=== PATIENT | male | born 1960 | race Caucasian/White ===

== ENCOUNTER 2016-12-03 10:26 | Emergency (ER) | payer OTHER ==
[~2016-12-03 10:26] MED LIST: LEVAQUIN750 MG PO; METFORMIN HCL500 MG PO; PROBIOTIC1 EAC1 PO
[2016-12-03 11:43] LABS: BASOPHIL 0.3 % (0-2); EOSINOPHIL 2.2 % (0-5); HCT 47.5 % (42.0-52.0); HGB 16.9 g/dl (13.2-18.0); LYMPHOCYTE 18.8 % (15-48); MCH 30.9 pg (25.0-31.0); MCHC 35.6 g/dL (32.0-36.0); MCV 86.8 fL (78.0-100.0); MPV 9.4 fL (6.0-9.5); NEUTROPHIL 67.7 % (41-80); PLT 240 K/uL (150-400); RBC 5.47 M/uL (4.70-6.00); RDW 14.9 % (11.5-14.0); WBC 6.5 K/uL (4.0-10.5)
[2016-12-03 12:07] LABS: ALBUMIN 4.5 g/dL (3.5-5.0); BILIRUBIN - TOTAL 1.3 mg/dL (0.1-1.0); CREATININE 1.4 mg/dL (0.7-1.2); POTASSIUM 3.9 mmol/L (3.5-5.1); TOTAL PROTEIN 7.5 g/dL (6.4-8.3)
[2016-12-03 12:17] LABS: LACTIC ACID 1.3 mmol/L (0.5-2.2)
[2016-12-03 12:44] LABS: BILIRUBIN NEGATIVE (NEGATIVE); BLOOD TRACE-INTACT Ery/uL (NEGATIVE); CLARITY CLEAR (CLEAR); COLOR YELLOW (YELLOW); GLUCOSE (U) NORMAL (NORMAL); KETONE (U) NEGATIVE (NEGATIVE); LEUKOCYTES NEGATIVE Leu/uL (NEGATIVE); NITRITE NEGATIVE (NEGATIVE); PROTEIN 1+ mg/dL (NEGATIVE); UROBILINOGEN 0.2 mg/dL (0.2-1.0)
[2016-12-03 14:06] LABS: URINARY RBC RARE
[2016-12-21] MEDS ORDERED: TOPROL XL 50 MG50 MG PO (10:41)
[2016-12-21] MEDS ORDERED: FLOMAX0.4 MG PO (10:42)
[2016-12-21] MEDS ORDERED: XANAX0.5 MG PO (10:43)
[2016-12-21] MEDS ORDERED: DEPO-TESTO200 MG/1 M IM (10:44)
[2016-12-21] MEDS ORDERED: GLUCOTROL10 MG PO (10:45)
[2016-12-21] MEDS ORDERED: HYZAAR 100-251 EACH PO (10:45)
[2016-12-21] MEDS ORDERED: LOMOTIL1 EACH PO (10:47)
[2016-12-21] MEDS ORDERED: BENTYL10 MG PO (10:48)
[2016-12-21] MEDS ORDERED: PLAVIX75 MG PO (10:48)
[2016-12-21] MEDS ORDERED: CEFDINIR300 MG PO (10:50)
[2016-12-21] MEDS ORDERED: DULERA 200 MCG8.8 GM INH (10:52)
[2016-12-21] MEDS ORDERED: PREDNISONE 10MG10 MG PO (10:52)
[2016-12-21] MEDS ORDERED: SINGULAIR10 MG PO (10:53)
[2016-12-21] MEDS ORDERED: CLARITIN10 MG PO (10:53)
[2016-12-21] MEDS ORDERED: OMEPRAZOLE40 MG PO (13:13)
[2016-12-21] MEDS ORDERED: NORVASC10 MG PO (13:13)
[2016-12-21] MEDS ORDERED: DUONEB 2.5-0.5M1 AMP INH (13:16)
[2016-12-21] MEDS ORDERED: MUCINEX 600MG600 MG PO (13:17)
== END 2016-12-03 15:35 | disposition home or self-care (01) ==
LOC: FER 10:26
PROVIDERS: Internal Medicine
DX: J18.9 Pneumonia, unspecified organism (principal); I10 Essential (primary) hypertension; E11.9 Type 2 diabetes mellitus without complications; N40.0 Benign prostatic hyperplasia without lower urinary tract symptoms; Z95.1 Presence of aortocoronary bypass graft; Z87.891 Personal history of nicotine dependence; Z79.84 Long term (current) use of oral hypoglycemic drugs; Z79.899 Other long term (current) drug therapy
CPT/HCPCS: 36415; 71020; 71275; 80053; 81001; 83605; 83690; 84484; 85025; 85379; 87040; 93005; Q9967

== ENCOUNTER 2020-09-19 07:03 | Emergency (ER) | payer OTHER ==
[~2020-09-19] VITALS: Ht 190.5 cm; Wt 123.4 kg
[~2020-09-19 07:03] MED LIST changes: +BACTRIM DS TAB1 EACH PO; +BENTYL10 MG PO; +CEFDINIR300 MG PO; +CLARITIN10 MG PO; +CLEOCIN HCL150 MG PO; +DEPO-TESTO200 MG/1 M IM; +DULERA 200 MCG8.8 GM INH; +DUONEB 2.5-0.5M1 AMP INH; +FLOMAX0.4 MG PO; +GLUCOTROL10 MG PO; +HYZAAR 100-251 EACH PO; +LOMOTIL1 EACH PO; +LOVENOX100 MG/1 M SC; +MUCINEX 600MG600 MG PO; +NORVASC10 MG PO; +OMEPRAZOLE40 MG PO; +PLAVIX75 MG PO; +PREDNISONE 10MG10 MG PO; +SINGULAIR10 MG PO; +TOPROL XL 50 MG50 MG PO; +XANAX0.5 MG PO
[2020-09-19 07:57] LABS: BASOPHIL 0.2 % (0-2); EOSINOPHIL 1.2 % (0-5); HCT 47.4 % (42.0-52.0); HGB 16.4 g/dl (13.2-18.0); LYMPHOCYTE 17.9 % (15-48); MCH 31.8 pg (25.0-31.0); MCHC 34.6 g/dL (32.0-36.0); MCV 91.9 fL (78.0-100.0); MPV 10.1 fL (6.0-9.5); NEUTROPHIL 73.2 % (41-80); NRBC 0; PLT 220 K/uL (150-400); RBC 5.16 M/uL (4.70-6.00); RDW 14.6 % (11.5-14.0); WBC 8.1 K/uL (4.0-10.5)
[2020-09-19 08:03] LABS: INR 1.04 (0.9-1.2); PROTHROMBIN TIME 12.9 SECONDS (11.4-13.6); PTT 28.6 SECONDS (22.2-34.7)
[2020-09-19 08:04] LABS: D-DIMER 0.61 ug/mLFEU (0.00-0.41)
[2020-09-19 08:14] LABS: IRON % SATURATION 30.2 %SAT (20-50)
[2020-09-19 08:22] LABS: PRO-BNP 41 pg/mL (<125)
[2020-09-19 08:25] LABS: ALBUMIN 3.9 g/dL (3.4-5.0); BILIRUBIN - TOTAL 1.2 mg/dL (0.2-1.0); BUN/CREAT RATIO (CALC) 14.4 RATIO; C-REACTIVE PROTEIN 0.6 mg/dL (<=0.90); CREATININE 0.9 mg/dL (0.67-1.17); GLOBULIN (CALCULATION) 3.5 g/dL; MAGNESIUM 1.9 mg/dL (1.8-2.4); POTASSIUM 3.4 mmol/L (3.5-5.1); TOTAL PROTEIN 7.4 g/dL (6.4-8.2)
== END 2020-09-19 18:07 | disposition other institution (70) ==
LOC: FER 07:03
PROVIDERS: Emergency Medicine
DX: R07.1 Chest pain on breathing (principal); R06.02 Shortness of breath; I11.0 Hypertensive heart disease with heart failure; I50.9 Heart failure, unspecified; I25.10 Atherosclerotic heart disease of native coronary artery without angina pectoris; I25.2 Old myocardial infarction; E11.9 Type 2 diabetes mellitus without complications; Z86.718 Personal history of other venous thrombosis and embolism; Z98.890 Other specified postprocedural states; Z95.1 Presence of aortocoronary bypass graft; Z95.5 Presence of coronary angioplasty implant and graft; Z20.822 Contact with and (suspected) exposure to COVID-19
CPT/HCPCS: 36415; 71045; 71275; 80053; 82728; 83540; 83550; 83615; 83735; 83880; 84145; 84484; 85025; 85379; 85610; 85730; 86140; J2270; J2405; Q9967; U0002